=== PATIENT | male | born 1970 | race Caucasian/White ===

== ENCOUNTER 2022-08-21 19:46 | Emergency (ER) | payer SELFPAY ==
[2022-08-21 19:47] VITALS: BP 140/93; PULSE 101; RESP 16; TEMP 36.8; O2SAT 97; BMI 43.9
--- NOTE | 2022-08-21 20:00 | RAD_ITS ---
STUDY: LEFT ANKLE X-RAY SERIES 1959 AND 08/21/2022 REASON FOR EXAM: 51-year-old male with injury, swelling, bruising of the left ankle. TECHNIQUE: 3 view(s) of the ankle. COMPARISON: None. FINDINGS: There has been surgical plating of an old healed fracture of the distal left fibula. There has been surgical skin fixation of a medial malleolar fracture with surgical screws. There is no evidence of new fractures or dislocations. There is marked narrowing of the ankle mortise. There is moderate soft tissue swelling of the distal calf and ankle. There is no evidence of an osteomyelitis or periostitis. Small Achilles and calcaneal spurs are evident. There is moderate anterior osteophytic degenerative changes at the talonavicular joint. RAD/Ankle min 3 Views IMPRESSION: 1. No new fractures or dislocations. 2. Surgical fixation of old fractures of distal fibula and medial malleolus. 3. Moderate narrowing of the ankle joint. 4. Moderate osteophytic degenerative changes dorsally of the talonavicular joint. 5. Small calcaneal and Achilles spurs. 6. Moderate soft tissue swelling of the distal calf and left ankle. Electronically Signed: Armando Kong MD at 21:08 EDT ,
--- NOTE | 2022-08-21 20:30 | EDS_ITS ---
HPI History of Present Illness HPI Narrative: Slipped and had a near fall today with left ankle pain and swelling. Prior fracture with orthopedic repair. Chief Complaint: Lower Extremity Injury Informant: patient and spouse/S.O. Occured/Mechanism Mechanism/Context: Yes injury Onset/Context/Timing Onset: Today and Hours Context: Sudden Onset Timing: Continuous Quality of Pain: Dull and Aching Current Severity: Moderate Maximum Severity: Moderate Associated Symptoms Associated Symptoms: Negative for Parasthesia, Weakness or Loss of Funtion Narrative Narrative: 51-year-old male states he has no medical problems. He is on new medications. States 20 years ago he had a significant fracture of his left ankle which was surgically repaired in [place]. He has chronic swelling in ankle. Today he said he stepped out of the shower slipped and twisted his ankle. Did not fall or go down. Denies any other complaints. Can walk but has discomfort in the ankle. He is concerned he may have broke it again. Prior similar symptoms: Yes Recent Illness/Hospitalization: No PFSH PFSH no medical history Allergy/AdvReac Type Severity Reaction Status Date / Time phenytoin sodium Allergy Hives Verified 08/21/22 19:49 [From Dilantin] phenytoin sodium extended Allergy Hives Verified 08/21/22 19:49 [From Dilantin] venom-honey bee Allergy Swollen Verified 08/21/22 19:49 [bee venom (honey bee)] lymph glands Latex, Natural Rubber AdvReac Rash Verified 08/21/22 19:49 Surgical History History of ankle surgery Social History Smoking Status: Never smoker ROS ROS ED ROS Narrative Denies recent illness. Review of Systems ROS Unobtainable: Denies due to encephalopathy Constitutional Constitutional ED: Denies chills or fever(s) Eyes Eyes: Denies blurry vision ENT ENT ED: Denies ear pain Cardiovascular Cardiovascular: Denies chest pain Respiratory/Chest Respiratory/Chest: Denies cough or dyspnea Gastrointestinal Gastrointestinal: Denies abdominal pain Genitourinary Genitourinary ED: Denies dysuria or hematuria Musculoskeletal Musculoskeletal: Denies arthralgias Integumentary Denies abscess Neurologic Neurologic: Denies headache(s) Psychiatric Psychiatric: Denies anxiety Endocrine Endocrinology: Denies polydipsia Hematologic/Lymphatic Hematologic/Lymphatic: Denies easy bleeding Allergic/Immunologic Allergic/Immunologic ED: Denies mouth swelling or tongue swelling EXAM Physical Exam Narrative Exam Narrative: 49-year-old male no acute distress vital signs stable afebrile. HEENT exam normal. Atraumatic. Lungs clear. Heart regular rhythm. Abdomen soft nontender. Moving all 4 extremities. Normal gait she has tenderness at both the medial lateral malleolus. No swelling. DP pulse intact. He is able to wiggle his toes. He does have decreased sensation in his toes from neuropathy. He has limited dorsiflexion due to limited range of motion the ankle from a prior injury. He is able to do plantar flexion. Skin intact. Const Vital Signs: 08/21/22 19:47 Temperature 98.2 F Temperature Source Temporal Pulse Rate 101 H Respiratory Rate 16 Blood Pressure 140/93 H Blood Pressure Mean 108 Pulse Ox 97 Oxygen Delivery Method Room Air Positive well nourished, well developed and obese; Negative for cachectic, contractures or unkempt General Appearance ED: well developed and NAD; Negative for unkempt, cachectic or contractures Nutritional Appearance: obese; Negative for cachectic HEENT Reports moist mucous membranes normocephalic and atraumatic; Negative for trauma or tenderness Eyes PERRL General Eye ED: Negative for other Neck full ROM and supple Thyroid: Negative for tender Lymph Lymphatic: Negative for other Chest Wall inspection of chest normal and palpation of chest normal Chest: Negative for other Resp normal respiratory effort, no retractions and clear to auscultation bilaterally Effort and Inspection: Negative for pain with movement Auscultation: Negative for rales or rhonchi Percussion: Negative for other Cardio regular rate, regular rhythm, S1 normal heart sound, S2 normal heart sound and no murmurs Rate: Negative for bradycardia or tachycardic Rhythm: abnormal rhythm GI non-tender, non-distended and no masses Inspection: Negative for abdominal distention Auscultation: normoactive bowel sounds Palpation: soft; Negative for tender or guarding Back/Spine no CVA tenderness General Back: Negative for CVA tenderness Cervical Spine: Negative for cervical spine tenderness Thoracic Spine / Upper Back: Negative for thoracic spinal tenderness Lumbar Spine / Lower Back: Negative for lumbar spinal tenderness Extremity normal to inspection and full ROM Extremity Narrative: Except left ankle tender both medial lateral malleoli. Swollen. DP pulse intact. Limited range of motion that is chronic from her prior fracture. Decreased sensation in his toes from neuropathy. Skin intact. Achilles intact. Proximal lower leg and knee are nontender. General Extremety ED: Yes edema and weight-bearing difficulty; Negative for cyanosis General Extremity: edema and weight-bearing difficulty; Negative for cyanosis Neuro oriented x3 and moves all extremities Sensorium / Orientation: alert, oriented to person, oriented to place and oriented to time; Negative for orientation impaired, confused, lethargic or stuporous Motor Exam: strength 5/5 throughout; Negative for general weakness or strength abnormal Psych mental status grossly normal Appearance: Negative for unkempt Speech: No other Mood & Affect: Negative for anxious Skin no wounds Lesions: no lesions Rashes: no rashes Trauma: Negative for abrasion or laceration MDM MDM MDM Narrative Medical decision making narrative: 51-year-old male slipped injuring his left ankle tonight. 20 years ago he had a prior fracture with repair. X-ray tonight shows chronic changes no acute fracture. Orthopedic hardware in place. He will be discharged to home. Tylenol and Motrin for pain and swelling. Ice and elevate. Crutches. Follow- up with orthopedics if not improving. He has seen [facility] in the past. Radiography Diagnostic Testing: Left ankle x-ray, 3 views, interpreted by myself shows soft tissue swelling. Chronic arthritis and joint space narrowing. Prior orthopedic hardware on both the distal fibula and medial malleolus. No acute fracture. No dislocation. I did go over the films with the patient and his . Discharge Plan Triage Chief Complaint: Lower Extremity Injury ED Provider: Randolph Rosales Dx/Rx/DC Orders Clinical Impression: Ankle sprain Instructions: ED Ankle Sprain (Adult) Primary Care Provider: Care Physician,No Primary Referrals: Leo Blair DO [Med Staff - Active Staff] - 1 Week if not improving Care Physician,No Primary [Primary Care Provider] - Activity Restrictions/Additional Instructions: Ice and elevate your left ankle at least 4-5 times a day for 30 minutes each time for the next 3 days to decrease pain and swelling. Motrin for pain and swelling and Tylenol for pain. Aircast to ambulate and crutches. Increase weightbearing as tolerated. Follow-up with [facility] if not improving. Your x-rays today did not show any fractures. Disposition Disposition: Home, Self Care
== END 2022-08-21 20:50 | disposition home or self-care (01) ==
PROVIDERS: Emergency Provider Emergency Medicine; Visit Provider Emergency Medicine
DX: S93.402A Sprain of unspecified ligament of left ankle, initial encounter (principal); W01.0XXA Fall on same level from slipping, tripping and stumbling without subsequent striking against object, initial encounter; Y93.E1 Activity, personal bathing and showering; E66.9 Obesity, unspecified
CPT/HCPCS: 73610; 99284

== ENCOUNTER 2023-11-18 10:00 | Emergency (ER) | payer SELFPAY ==
[2023-11-18 10:01] VITALS: BP 183/111; PULSE 100; RESP 14; TEMP 36.2; O2SAT 98; BMI 45.6
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
[2023-11-18 10:49] LABS: Absolute Lymphocyte Count 2.38 X10^3/uL (0.83-4.51); Absolute Neutrophil Count 7.1 X10^3/uL (2.0-7.7); Basophil# 0.06 X10^3/uL; Basophil% 0.6 % (0-1); Eosinophil# 0.13 X10^3/uL; Eosinophils% 1.2 % (0-5); Hematocrit 46.7 % (40-54); Hemoglobin 15.4 g/dL (13.0-16.5); Lymphocyte # 2.38 X10^3/ul (0.83-4.51); Lymphocyte % 22.2 % (19-41); Mean Corpuscular Hgb 29.5 pg (27.0-32.0); Mean Corpuscular Volume 89.5 fL (80-94); Mean Platelet Vol. 9.3 fl (6.2-12.0); Monocyte% 9.3 % (0-10); NRBC Flagged by Analyzer 0 % (0-5); Neutrophil # 7.11 X10^3/uL (2.7-7.7); Neutrophil % 66.3 % (47-70); Platelet Count 302 K/mm3 (150-450); RBC Distribution Width CV 13.4 % (11.6-14.6); RBC Distribution Width SD 43.6 fl (35.1-43.9); Red Blood Count 5.22 M/mm3 (4.6-6.2); White Blood Count 10.7 K/mm3 (4.4-11.0)
[2023-11-18 11:09] LABS: Anion Gap 10 (5-15); BUN 14 mg/dL (7-18); BUN/Creat Ratio 12.8 RATIO (10-20); Calcium,Total 9.6 mg/dL (8.5-10.1); Chloride 103 mmol/L (98-107); Creatinine, Serum 1.09 mg/dL (0.70-1.30); EST Glomerular Filtration Rate 75 mL/min (>60); Est Glom Filt Rate - Afr Amer 91 mL/min (>60); Estimated Creatinine Clearance 88.57 ml/min; Glucose 96 mg/dL (74-106); Potassium 3.4 mmol/L (3.5-5.1); Sodium Level 136 mmol/L (136-145)
[2023-11-18 11:31] LABS: Amphetamine Urine VISTA NEGATIVE (<1000 ng/mL); Barbiturate Urine VISTA NEGATIVE (< 200 ng/mL); Benzodiazepine Urine VISTA NEGATIVE (< 200 ng/mL); Cocaine Urine VISTA NEGATIVE (< 300 ng/mL); Ecstacy Urine VISTA NEGATIVE (< 500 ng/mL); Methadone Urine VISTA NEGATIVE (< 300 ng/mL); PCP Urine VISTA NEGATIVE (< 25 ng/mL); THC Urine VISTA NEGATIVE (< 50 ng/mL); Vista UDS pH Range 5
[2023-11-18 11:44] LABS: Alcohol, Blood (Medical)-Serum < 3.0 mg/dL
--- OUTSIDE RECORDS SUMMARY | 2023-11-18 12:49 | XMS RPT_ITS | CCD ---
Author Name Unknown Address [address] [place] [address] Organization [facility] Care Team Providers Care Salesperson Furniture Name Role Phone STERLING RAINEYNA David Unavailable Unavailable Flores, Son N Unavailable Unavailable Claude Childress CNP Unavailable Unavailable PCP, Unknown Primary Care Unavailable Mariluz Pritchard Attending Unavailable PCP, Unknown Primary Care Unavailable KitMarco rasmussen Attending Unavailable Allergies Allergy Classification Reported Allergen(s) Allergy Type Date of Onset Reaction(s) Facility (1 source) Phenytoin Drug Allergy 11-01-2018 [facility] Repository Problems Active Problems Problem Classification Problem Date Documented Da te Episodic/Chronic Coronary atherosclerosis and other heart disease (1 source) Old myocardial infarction; Translations: [OLD MYOCARDIAL INFARCTION] Onset: 11-09-2018 Chronic Unclassified (2 sources) Unknown / UNK(Unknown) Onset: 10-07-2018 Past or Other Problems Problem Classification Problem Date Documented Da te Episodic/Chronic Abdominal pain (2 sources) Right upper quadrant pain; Translations: [Epigastric pain] Onset: 11-09-2018 Episodic Nausea and vomiting (1 source) Nausea; Translations: [NAUSEA] Onset: 11-09-2018 Episodic Other gastrointestinal disorders (1 source) Diarrhea, unspecified; Translations: [DIARRHEA, UNSPECIFIED] Onset: 11-09-2018 Episodic Other non-traumatic joint disorders (1 source) Pain in left shoulder; Translations: [PAIN IN LEFT SHOULDER] Onset: 11-01-2018 Episodic Sprains and strains (1 source) Sprain of unspecified parts of left shoulder girdle, initial encounter; Translations: [SPRAIN OF UNSP PARTS OF LEFT SHOULDER GIRDLE, INIT ENCNTR] Onset: 11-01-2018 Episodic Unclassified (1 source) UPPER PAIN, SOB Onset: 11-06-2018 Unclassified (1 source) LEFT SHOULDER PAIN,NKI Onset: 10-07-2018 Results Test Name Value Interpretation Reference Range Facil ity Encounters Encounter Date Encounter Type Care Provider Facility Start: 11-19-2018 Patient encounter procedure Claude Childress Facility: Start: 11-09-2018 End: 11-10-2018 Emergency department patient visit Unknown PCP Facility:[facility] Start: 11-06-2018 End: 11-06-2018 Emergency department patient visit BEATRICE RAINEY Facility:[facility] Start: 11-01-2018 End: 11-01-2018 Emergency department patient visit Unknown PCP Facility:[facility] Start: 10-07-2018 Patient encounter procedure Son N Flores Facility: Procedures Date Procedure Procedure Detail Performing Clinician Start: 11-06-2018 Electrocardiogram BEATRICE RAINEY Payers Date Payer Category Payer Policy ID Self-pay [id number] Self-pay Unknown [id number] Unknown [id number] Unknown [id number] Unknown [id number] [id number] Unknown [id number] [id number] Summary Purpose Family History No Family History Records FoundNo Family History Records FoundNo Family History Records FoundNo Family History Records Found Advance Directives No Advanced Directives Records FoundNo Advanced Directives Records FoundNo Advanced Directives Records FoundNo Advanced Directives Records Found Additional Source Comments (unrecognized sect ion and content) No Status Records FoundNo Status Records FoundNo Status Records FoundNo Status Records Found INFORMATION SOURCE (unrecogn ized section and content) DATE CREATED AUTHOR AUTHOR'S ORGANIZ ATION 11/10/2018 [facility] DATE CREATED AUTHOR AUTHOR'S ORGANIZ ATION 11/20/2018 [facility] DATE CREATED AUTHOR AUTHOR'S ORGANIZ ATION 02/20/2019 [facility] FOR RECORDS PERTAINING TO PATIENTS WHO ARE OR HAVE BEEN ENROLLED IN A CHEMICAL DEPENDENCY/SUBSTANCEABUSE PROGRAM, SOME INFORMATION MAY BE OMITTED. This clinical summary was aggregated from multiple sources. Caution should be exercised in using it in the provision of clinical care. This summary normalizes information from multiple sources, and as a consequence, information in this document may materially change the coding, format and clinical context of patient data. In addition, data may be omitted in some cases. CLINICAL DECISIONS SHOULD BE BASED ON THE PRIMARY CLINICAL RECORDS. [facility] [employer] [facility]. provides no warranty or guarantee of the accuracy or completeness of information in this document.
--- NOTE | 2023-11-18 13:45 | CM.ED ---
Social Work SW received hand-off from crisis when patient arrived. Crisis pink-slipped patient. Patient has been medically cleared. After registration, patient noted to not have insurance. Crisis will have to complete evaluation in order to use [facility] funding for placement. SW faxed information to crisis and notified them of patient needing assessed. Vicky Flanagan LABORER [employer], NOC ENGINEER
[2023-11-18 15:00] VITALS: RESP 18
[2023-11-18] MEDS: Naproxen 500 MG Tablet PO (15:38)
--- NOTE | 2023-11-18 20:19 | CM.ED ---
Social Work Crisis assessed patient and is recommending placement. Pt is referred to [facility] with single case agreement funding due to no insurance. Crisis handling placement due to funding. Vicky Flanagan EXCEL ANALYST, BEHAVIORAL HEALTH THERAPIST
--- NOTE | 2023-11-18 21:01 | ED.RN ---
ACCEPTED AT [address] [phone] [facility]
[2023-11-18 22:25] VITALS: BP 158/88; PULSE 70; RESP 16; TEMP 35.9; O2SAT 96
[2023-11-18 23:00] VITALS: BP 158/88; PULSE 70; RESP 16; TEMP 35.9; O2SAT 96
== END 2023-11-18 22:37 ==
PROVIDERS: Emergency Provider Emergency Medicine; Visit Provider Emergency Medicine
DX: R45.851 Suicidal ideations (principal); Z90.49 Acquired absence of other specified parts of digestive tract; Z59.7 Insufficient social insurance and welfare support
CPT/HCPCS: 36415; 80048; 80307; 80320; 85025; 87811; 93005; 99285; G0480

== ENCOUNTER 2023-11-29 16:36 | Emergency (ER) | payer SELFPAY ==
[2023-11-29 16:38] VITALS: BP 143/95; PULSE 97; RESP 18; TEMP 35.8; O2SAT 98
--- NOTE | 2023-11-29 16:48 | EDS_ITS ---
HPI History of Present Illness Chief Complaint: Neuro S/Sx Informant: patient Narrative Narrative: Patient presents with intermittent tremors. Mostly involving upper extremities but can be any areas. They are fine intermittent shaking. They oftentimes come grouped together and then there is a pause. No actual weakness. No numbness. He is able to walk and talk. He is eating and drinking fine. He states the depression is actually doing better. He started 2 new medicines about a week ago. These were Lexapro and lisinopril. He has not been on either 1 in the past. He has no swelling of the tongue lips or any other areas. No trouble breathing. He contacted his physician who told him to continue the medicine. [facility] Medical History Depression GERD (gastroesophageal reflux disease) Home Medications NK 11/18/23 [History Last Taken Unknown] Allergy/AdvReac Type Severity Reaction Status Date / Time phenytoin sodium Allergy Hives Verified 11/29/23 16:38 [From Dilantin] phenytoin sodium extended Allergy Hives Verified 11/29/23 16:38 [From Dilantin] venom-honey bee Allergy Swollen Verified 11/29/23 16:38 [bee venom (honey bee)] lymph glands Latex, Natural Rubber AdvReac Rash Verified 11/29/23 16:38 Surgical History History of ankle surgery History of cholecystectomy Social History Smoking Status: Never smoker [facility] ED Constitutional Constitutional ED: Denies chills or fever(s) Eyes Eyes: Denies change in vision ENT ENT ED: Denies rhinorrhea or sore throat Cardiovascular Cardiovascular: Denies chest pain Respiratory/Chest Respiratory/Chest: Denies cough or dyspnea Gastrointestinal Gastrointestinal: Denies nausea or vomiting Musculoskeletal Musculoskeletal: Denies myalgias Integumentary Denies rash Neurologic Neurologic: Reports other Details: See history of present illness. ; Denies headache(s), paresthesias or weakness Endocrine Endocrinology: Denies polydipsia or polyuria Hematologic/Lymphatic Hematologic/Lymphatic: Denies easy bleeding or easy bruising Allergic/Immunologic Allergic/Immunologic ED: Denies urticaria EXAM Physical Exam Narrative Exam Narrative: CONSTITUTIONAL: Patient is nontoxic in appearance. The patient looks comfortable. Work of breathing looks normal. HEENT: No notable trauma. Mucous membranes still moist. EYES: No conjunctival injection. No proptosis. NECK:No JVD. No stridor. CARDIOVASCULAR: Regular rate. Regular rhythm. No notable murmur. No JVD. RESPIRATORY: No respiratory distress. Breathing is unlabored. No wheezes. No rhonchi. No rales. No pain with a deep breath. No chest wall tenderness. GASTROINTESTINAL: Not distended. Bowel sounds are normal. No tenderness. No guarding. No rebound. No palpable mass. No bruit is heard. GENITOURINARY: No tenderness over the bladder. No CVA tenderness. MUSCULOSKELETAL: Atraumatic. No tenderness. No swollen joints. NEUROLOGICAL: Patient is alert and appropriate. No focal deficit noted. He has a fine intermittent shake mostly of his arms. But there is no weakness. When he is reaching or doing something he has perfectly good control. There is no sensory change. There is no discoordination. SKIN: No noted rashes. No diaphoresis. PSYCHIATRIC: Patient is calm. Mood is appropriate. Const Vital Signs: 11/29/23 16:38 Temperature 96.5 F L Temperature Source Temporal Pulse Rate 97 Respiratory Rate 18 Blood Pressure 143/95 H Blood Pressure Mean 111 Pulse Ox 98 Oxygen Delivery Method Room Air MDM MDM MDM Narrative Medical decision making narrative: I explained to the patient that this is likely his Lexapro causing this. It is a known potential side effect. The real treatment is to stop the medicine and have him switch to another antidepressant. But we will make sure that he has not have any significant electrolyte abnormalities at this time as he was also started on the lisinopril. Basic metabolic panel shows no marked abnormalities. Minimally low sodium at 135 which is not the source of his symptoms. Patient states he has an appointment with his doctor in 2 days. I recommend he stay on this med until then. If he has to he can cut it back to half dose. They will likely need to change medications to find one that does not have as much side effects. But he is getting good beneficial effects and reduction of depression symptoms. Lab Data Labs: Laboratory Results - last 24 hr 11/29/23 16:47 Sodium 135 L Potassium 3.6 Chloride 101 Carbon Dioxide 29.0 Anion Gap 5 BUN 8 Creatinine 1.00 Est GFR (MDRD) Af Amer 101 Est GFR (MDRD) Non-Af 83 BUN/Creatinine Ratio 8.0 L Glucose 99 Calcium 8.8 Discharge Plan Triage Chief Complaint: Neuro S/Sx ED Provider: Maximilian West Dx/Rx/DC Orders Clinical Impression: Drug-induced tremor Instructions: Essential Tremor (ET) Prescriptions: No Action NK Primary Care Provider: Care Physician,No Primary Referrals: Care Physician,No Primary [Primary Care Provider] - Activity Restrictions/Additional Instructions: Follow-up with your counseling appointment as scheduled Disposition Disposition: Home, Self Care Capacity Legal Exercise Equipment Repair Technician Reflex Medical hold order details:: IF a medical hold is selected below, a suggested order for a MEDICAL HOLD will reflex upon signing the document. Next of kin: [place] law dictates a PRIORITY LIST for identifying legal decision-maker/legal next of kin in the following order (LNOK): 1st: The patient?s legal guardian, if any 2nd: The patient's spouse (if status is questionable, consult Risk Management) 3rd: The patient?s adult child(lilibeth) (majority, if multiple children) 4th: The patient?s parents 5th: The patient?s adult siblings (majority, if multiple children siblings)
--- NOTE | 2023-11-29 16:48 | ED.RN ---
pt started taking lisinopril and lexapro approx. 1 week ago. since then pt states he has developed uncontrollable muscle tremors of the upper extremities. tremors observed by this RN. pt denies any other complaints at this time.
[2023-11-29 17:21] LABS: Anion Gap 5 (5-15); BUN 8 mg/dL (7-18); Calcium,Total 8.8 mg/dL (8.5-10.1); Chloride 101 mmol/L (98-107); EST Glomerular Filtration Rate 83 mL/min (>60); Est Glom Filt Rate - Afr Amer 101 mL/min (>60); Glucose 99 mg/dL (74-106); Potassium 3.6 mmol/L (3.5-5.1); Sodium Level 135 mmol/L (136-145)
== END 2023-11-29 17:47 | disposition home or self-care (01) ==
PROVIDERS: Emergency Provider Emergency Medicine; Visit Provider Emergency Medicine
DX: G25.1 Drug-induced tremor (principal); Z90.49 Acquired absence of other specified parts of digestive tract; T43.225A Adverse effect of selective serotonin reuptake inhibitors, initial encounter
CPT/HCPCS: 80048; 99283; A4216